=== PATIENT | female | born 1995 | race Caucasian/White ===

== ENCOUNTER 2016-10-16 01:44 | Emergency (ER) | payer OTHER | END 2016-10-16 03:55 | disposition home or self-care (01) | LOC: ER 01:44 | DX: R50.9 Fever, unspecified (principal); R07.0 Pain in throat; J45.909 Unspecified asthma, uncomplicated; F17.210 Nicotine dependence, cigarettes, uncomplicated | CPT/HCPCS: 87804; 87880 ==